=== PATIENT | female | born 1945 | race Caucasian/White ===

== ENCOUNTER 2017-02-02 22:07 | Emergency (ER) | payer MEDICARE, OTHER ==
[2017-02-02] MEDS ORDERED: IBUPROFEN 400 MG TABLET PO STA (22:24)
[2017-02-02] MEDS ORDERED: IBUPROFEN 400 MG TABLET PO ONE (22:24)
== END 2017-02-02 23:23 | disposition home or self-care (01) ==
DX: M25.561 Pain in right knee (principal); R03.0 Elevated blood-pressure reading, without diagnosis of hypertension; I25.2 Old myocardial infarction; E03.9 Hypothyroidism, unspecified; F17.200 Nicotine dependence, unspecified, uncomplicated
CPT/HCPCS: 73564; 99283; 99284; A9270

== ENCOUNTER 2017-08-20 13:34 | Emergency (ER) | payer MEDICARE, OTHER ==
[2017-08-20 14:32] LABS: BASOPHILS % (AUTO) 1.2 %; EOSINOPHILS # (AUTO) 0.1 10^3/uL (0.0-0.7); EOSINOPHILS % (AUTO) 1.6 %; HCT - HEMATOCRIT 34.6 % (37.0-47.0); HGB - HEMOGLOBIN 11.5 g/dL (12.0-16.0); LYMPHOCYTES # (AUTO) 1.3 10^3/uL (1.5-3.5); LYMPHOCYTES % (AUTO) 33.7 %; MEAN CORPUSCULAR HEMOGLOBIN 31.1 pg (27.0-31.0); MEAN CORPUSCULAR HGB CONC 33.1 g/dL (32.0-36.0); MEAN CORPUSCULAR VOLUME 93.9 fL (81.0-99.0); MONOCYTES # (AUTO) 0.4 10^3/uL (0.0-1.0); MONOCYTES % (AUTO) 10.6 %; NEUTROPHILS % (AUTO) 52.9 %; NUCLEATED RED BLOOD CELLS AUTO 0.1 /100WBC; RED BLOOD COUNT 3.69 10^6/uL (4.20-5.40); RED CELL DISTRIBUTION WIDTH 14.5 % (12.0-15.0); UNCORRECTED WHITE BLOOD COUNT 3.8 x10^3/uL; WHITE BLOOD COUNT 3.8 x10^3/uL (4.8-10.8)
--- NOTE | 2017-08-20 14:33 | ED Physician Documentation ---
PD HPI CHEST PAIN - Stated complaint Stated Complaint: WEAKNESS/TIRED - Chief complaint Chief Complaint: Cardiac - History obtained from History obtained from: Patient - History of Present Illness Timing - onset: Today (this morning), Last night (some fatigue started last night, with slight chest pressure. This was present this morning again about 9: 30. Still feels weak and tired.) Timing - onset during: Rest Timing - duration: Minutes Timing - details: Abrupt onset, Now resolved (the chest pressure is gone but feels fatigue.) Quality: Pressure, Tightness Location: Substernal Worsened by: No: Inspiration, Movement, Palpation Associated symptoms: General Weakness. No: Shortness of air, Diaphoresis, Nausea, Vomiting, Feeling faint / dizzy, Palpitations, Cough Similar symptoms before: Diagnosis ([place]) Recently seen: Not recently seen Review of Systems Constitutional: denies: Fever, Myalgias Nose: denies: Rhinorrhea / runny nose, Congestion Throat: denies: Sore throat Cardiac: reports: Chest pain / pressure (mild chest pressure this morning about 9:30, and some last night as well.). denies: Palpitations, Pedal edema, Calf pain Respiratory: denies: Dyspnea, Cough, Wheezing Musculoskeletal: denies: Extremity swelling Neurologic: reports: Generalized weakness. denies: Focal weakness, Numbness, Near syncope Psychiatric: denies: Insomnia Endocrine: denies: Weight loss, Easy bruising / bleeding PD PAST MEDICAL HISTORY - Past Medical History Cardiovascular: [place] Respiratory: None Neuro: None Endocrine/Autoimmune: HyPOthyroidism GI: None CONCESSION SUPERVISOR: None : None HEENT: None Psych: Depression, Anxiety Musculoskeletal: None Derm: Rosacea - Past Surgical History Past Surgical History: Yes Ortho: Other /CONCESSION SUPERVISOR: Tubal ligation HEENT: Tonsil/Adenoidectomy - Present Medications Home Medications: Ambulatory Orders Medication Instructions Recorded Confirmed Citalopram [CeleXA] 10 mg ORAL DAILY 11/03/14 08/06/15 LORazepam [Ativan] 0.5 mg ORAL DAILY PRN 11/03/14 08/06/15 Levothyroxine [Synthroid] 50 mcg PO DAILY 11/03/14 08/06/15 Nitroglycerin 0.4 mg PO DAILY PRN 08/06/15 08/06/15 Hydrocodone/Acetaminophen 1 - 2 each PO Q6H PRN #14 tablet 02/02/17 [Hydrocodon-Acetaminophen 5-325] Meloxicam [Mobic] 7.5 mg PO BID PRN #20 tablet 02/02/17 - Allergies Allergies/Adverse Reactions: Allergies Allergy/AdvReac Type Severity Reaction Status Date / Time erythromycin base Allergy Mild Unknown Verified 02/02/17 22:19 [From E-Mycin] epinephrine AdvReac Rash Verified 02/02/17 22:19 - Social History Does the pt smoke?: Yes Smoking Status: Current every day smoker Does the pt drink ETOH?: Yes Does the pt have substance abuse?: No - Immunizations Immunizations are current?: Yes - POLST Patient has POLST: No PD ED PE NORMAL - Vitals Vital signs reviewed: Yes - General General: Alert and oriented X 3, No acute distress, Well developed/nourished - HEENT HEENT: Moist mucous membranes, Pharynx benign - Neck Neck: Supple, no meningeal sign, No adenopathy - Cardiac Cardiac: RRR (bradycardic in 50s), No murmur, No rub - Respiratory Respiratory: Clear bilaterally - Abdomen Abdomen: Soft, Non tender - Female Female : Deferred - Rectal Rectal: Deferred - Back Back: No CVA TTP - Derm Derm: Normal color, Warm and dry - Extremities Extremities: No deformity, No tenderness to palpate, Normal ROM s pain, No edema , No calf tenderness / cord - Neuro Neuro: Alert and oriented X 3, No motor deficit, Normal speech - Psych Psych: Normal mood. No: Normal affect (slightly flat) Results - Vitals Vitals: Oxygen O2 Source Room air - EKG (time done) 13:52 Rate: Rate (enter#) (51) Rhythm: Sinus bradycardia Van: Normal Intervals: Normal IA QRS: Normal Ischemia: Normal ST segments. No: ST elevation c/w ischemia, ST depression, T wave inversion - Labs Labs: Laboratory Tests 08/20/17 08/20/17 08/20/17 14:23 14:23 14:23 WBC 3.8 L RBC 3.69 L Hgb 11.5 L Hct 34.6 L MCV 93.9 MCH 31.1 H MCHC 33.1 RDW 14.5 Plt Count 196 MPV 8.0 Neut # 2.0 Lymph # 1.3 L [place] # 0.4 Eos # 0.1 Baso # 0.0 Absolute Nucleated RBC 0.00 Nucleated RBC % 0.1 Sodium 137 Potassium 3.9 Chloride 103 Carbon Dioxide 27 Anion Gap 7.0 BUN 13 Creatinine 0.7 Estimated GFR (MDRD) 82 L Glucose 97 Calcium 9.1 Total Bilirubin 0.6 AST 25 ALT 16 Alkaline Phosphatase 102 Troponin I < 0.04 Total Protein 6.7 Albumin 3.8 Globulin 2.9 Albumin/Globulin Ratio 1.3 Lipase 45 - Rads (name of study) chest Radiology: Prelim report reviewed (no acute process) PD MEDICAL DECISION MAKING - ED course Complexity details: reviewed results, considered differential (she was concerned about weakness feeling being from [place], and with normal ECG and negative troponin about 6 hours after onset, I feel this can be excluded. Heart rate in 50s but she says it commonly slow. Not on rate limiting meds. Consider if slower heart rate leading to fatigue but is not affecting BP. ), d/w patient Departure - Departure Disposition: 01 Home, Self Care Clinical Impression: General weakness Clinical Impression: (Ruled Out): Myocardial infarction Condition: Stable Record reviewed to determine appropriate education?: Yes Instructions: ED Weakness [facility] Follow-Up: Connie Ochoa MD [Primary Care Provider] - Comments: Encourage frequent fluids. Continue usual medications. I do not know the cause of your weakness episode this morning. There is no signs of heart attack or electrolyte problems. He do have mild anemia but it is looks similar to where you have been. Recheck with your primary care, particularly if you have recurring episodes that come and go as a potentially could have you a heart monitor to make sure not having irregular heart rhythms periodically. Return to the ER if worse symptoms develop. Discharge Date/Time: 08/20/17 15:32
[2017-08-20 14:45] LABS: ALBUMIN/GLOBULIN RATIO 1.3 (1.0-2.2); BILIRUBIN,TOTAL 0.6 mg/dL (0.2-1.0); CALCIUM 9.1 mg/dL (8.5-10.3); CREATININE 0.7 mg/dL (0.4-1.0); POTASSIUM 3.9 mmol/L (3.5-5.0); TOTAL PROTEIN 6.7 g/dL (6.7-8.2)
--- NOTE | 2017-08-20 15:12 | XRAY Preliminary Report ---
Exam: XR Chest 2 View PA/LAT IMPRESSION: No acute intrathoracic plain film abnormality. [facility] SITE ID: [id number]
--- NOTE | 2017-08-20 15:14 | XRAY Report ---
EXAM: CHEST RADIOGRAPHY EXAM DATE: 08/20/2017 03:04 PM. CLINICAL HISTORY: Chest Pain. COMPARISON: None. TECHNIQUE: 2 views. FINDINGS: Lungs/Pleura: No focal opacities evident. No pleural effusion. No pneumothorax. Normal volumes. Mediastinum: Heart and mediastinal contours are unremarkable. Other: None. IMPRESSION: No acute intrathoracic plain film abnormality. [facility] Referring Provider Line: [phone] SITE ID: [id number]
[2017-08-20 15:33] VITALS: BP 155/67
== END 2017-08-20 15:32 | disposition home or self-care (01) ==
LOC: ED 13:34
DX: R53.1 Weakness (principal); I44.4 Left anterior fascicular block; F17.200 Nicotine dependence, unspecified, uncomplicated
CPT/HCPCS: 36415; 71020; 80053; 83690; 84484; 85025; 93005; 99283; 99284

== ENCOUNTER 2017-08-26 08:33 | Outpatient (CLI) | payer MEDICARE, OTHER | END 2017-08-26 08:34 | disposition EMS.NT | LOC: EMS 08:33 | PROVIDERS: ATTEND Surgery | DX: R09.89 Other specified symptoms and signs involving the circulatory and respiratory systems (principal) ==

== ENCOUNTER 2018-01-28 09:09 | Outpatient (CLI) | payer MEDICARE, OTHER ==
--- NOTE | 2018-01-28 09:58 | Ultrasound Report ---
SUBMANDIBULAR GLAND ULTRASOUND: 01/28/2018 COMPARISON: None. TECHNIQUE: Sonographic evaluation of the submandibular glands. FINDINGS: Right submandibular gland 3.8 x 3.2 x 1.4 cm. Left submandibular gland 3.6 x 2.8 x 1.2 cm. The right submandibular gland is somewhat more vascular than the left. No adenopathy is demonstrated. IMPRESSION: UNREMARKABLE EVALUATION OF THE SUBMANDIBULAR GLANDS. TD: 01/28/2018 09:57 JODY
== END 2018-01-28 09:10 | disposition home or self-care (01) ==
LOC: DI 09:09
PROVIDERS: ATTEND Registered Nurse
DX: K11.1 Hypertrophy of salivary gland (principal)
CPT/HCPCS: 76536

== ENCOUNTER 2018-02-27 10:25 | Emergency (ER) | payer MEDICARE, OTHER ==
[2018-02-27] MEDS ORDERED: MORPHINE 2 MG/ML SYRINGE IVP STA (12:22)
--- NOTE | 2018-02-27 12:26 | ED Physician Documentation ---
PD HPI BACK PAIN - Stated complaint Stated Complaint: BACK PX - Chief complaint Chief Complaint: Back Pain - History obtained from History obtained from: Patient - History of Present Illness Timing - onset: Other (4 days low back pain, initially left side now ride side. Worse with bending/twisting. No weak/numb/tingling or incontinence. Was constipated but had larg otherwise nl BM this AM.) Review of Systems Constitutional: denies: Fever, Chills Ears: denies: Loss of hearing, Ear pain Nose: denies: Rhinorrhea / runny nose, Congestion GI: reports: Abdominal Pain, Constipation. 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 : None HEENT: None Psych: Depression, Anxiety Musculoskeletal: None Derm: Rosacea - Past Surgical History Past Surgical History: Yes Ortho: Other /HOSPITAL SALES REPRESENTATIVE: Tubal ligation HEENT: Tonsil/Adenoidectomy - Present Medications Home Medications: Ambulatory Orders Medication Instructions Recorded Confirmed Citalopram [CeleXA] 10 mg ORAL DAILY 11/03/14 02/27/18 LORazepam [Ativan] 0.5 mg ORAL DAILY PRN 11/03/14 02/27/18 Levothyroxine [Synthroid] 50 mcg PO DAILY 11/03/14 02/27/18 Nitroglycerin 0.4 mg PO DAILY PRN 08/06/15 02/27/18 Hydrocodone/Acetaminophen 1 - 2 each PO Q6H PRN #14 tablet 02/02/17 02/27/18 [Hydrocodon-Acetaminophen 5-325] Meloxicam [Mobic] 7.5 mg PO BID PRN #20 tablet 02/02/17 02/27/18 Gabapentin [Neurontin] 100 mg PO TID #60 capsule 02/27/18 HYDROcod/ACETAM 5/325 [Blackstone 5/325] 1 - 2 ea PO Q6H PRN #15 tablet 02/27/18 - Allergies Allergies/Adverse Reactions: Allergies Allergy/AdvReac Type Severity Reaction Status Date / Time erythromycin base Allergy Mild Unknown Verified 02/02/17 22:19 [From E-Mycin] epinephrine AdvReac Rash Verified 02/02/17 22:19 - Social History Does the pt smoke?: Yes Smoking Status: Current every day smoker Does the pt drink ETOH?: No Does the pt have substance abuse?: No - Family History Family history: reports: Non contributory - Immunizations Immunizations are current?: Yes - POLST Patient has POLST: No PD ED PE NORMAL - Vitals Vital signs reviewed: Yes - General General: Alert and oriented X 3, No acute distress - Neck Neck: Supple, no meningeal sign, No bony TTP - Cardiac Cardiac: RRR, No murmur - Respiratory Respiratory: No respiratory distress, Clear bilaterally - Abdomen Abdomen: Normal bowel sounds, Soft, Other (She is quite TTP in the RLQ) - Back Back: Other (She is tender in the paralumbar muscles on the right side, but also has tenderness of the pelvic brim. The patient has equal and normal Achilles and patellar reflexes bilaterally. Normal sensation in all areas of the legs. Patient denies saddle anesthesia. Normal strength in flexion- extension at the ankles, knees, and flexion of the hips.) - Extremities Extremities: No edema, No calf tenderness / cord, Other (Neg SLR, no pain with hip rotation) - Neuro Neuro: Alert and oriented X 3, No motor deficit, No sensory deficit, Normal speech - Psych Psych: Normal mood, Normal affect Results - Vitals Vitals: Vital Signs - 24 hr 02/27/18 02/27/18 10:41 13:19 Temperature 36.3 C L Heart Rate 63 65 Respiratory 14 18 Rate Blood Pressure 101/86 H 160/69 H O2 Saturation 100 100 Oxygen O2 Source Room air - Labs Labs: Laboratory Tests 02/27/18 02/27/18 12:22 12:22 WBC 6.8 RBC 3.95 L Hgb 12.5 Hct 36.9 L MCV 93.5 MCH 31.7 H MCHC 33.9 RDW 14.3 Plt Count 212 MPV 8.0 Neut # 5.1 Lymph # 1.1 L [place] # 0.5 Eos # 0.0 Baso # 0.0 Absolute Nucleated RBC 0.00 Nucleated RBC % 0.0 Sodium 134 L Potassium 3.9 Chloride 98 L Carbon Dioxide 26 Anion Gap 10.0 BUN 12 Creatinine 0.7 Estimated GFR (MDRD) 82 L Glucose 93 Calcium 9.4 Total Bilirubin 1.0 AST 28 ALT 18 Alkaline Phosphatase 106 Total Protein 7.9 Albumin 4.6 Globulin 3.3 Albumin/Globulin Ratio 1.4 Lipase 26 - Rads (name of study) CT A/P and L spine Radiology: EMP read contemporaneously (Multilevel degenerative changes with stenosis in the back and bilateral foraminal narrowing, no intra-abdominal issues.) PD MEDICAL DECISION MAKING - ED course ED course: 72-year-old with woman with back pain which by history seems musculoskeletal without neurologic compromise, that said she does have some very mild right lower quadrant tenderness leading to a more expanded workup with labs and CT, the outcome of which was mild stenosis at L3-L4, moderate stenosis at L4-L5, and moderate bilateral L4-L5 bony foraminal compromise. Departure - Departure Disposition: 01 Home, Self Care Clinical Impression: Abdominal pain Back pain Qualifiers: Back pain location: low back pain Chronicity: acute Back pain laterality: bilateral Sciatica presence: without sciatica Qualified Code(s): M54.5 - Low back pain Record reviewed to determine appropriate education?: Yes Instructions: ED Low Back Pain Injury Prescriptions: Gabapentin [Neurontin] 100 mg PO TID #60 capsule HYDROcod/ACETAM 5/325 [Blackstone 5/325] 1 - 2 ea PO Q6H PRN #15 tablet PRN Reason: Pain Comments: Call your doctor to arrange a follow-up appointment, make the next available appointment. In the interim, return anytime if worse or if new symptoms develop. Your blood pressure was elevated today on check into the emergency department. This does not mean that you have hypertension, it is a common phenomenon to come to the emergency department and have elevated blood pressure. I recommend that you see your primary care physician within the week to have it rechecked when you are feeling better. Do not drink or drive while taking narcotic pain medication. Note that many narcotic pain relievers also contain Tylenol/acetaminophen. Please ensure that your total dose of acetaminophen from all sources does not exceed 3 g (3000 mg) per day. You may get constipated while on this medication. Take a stool softener such as Colace twice a day while you are on it. Also add an dhfu-kdx-[id number] laxative such as senna or MiraLAX on any day that you do not have a bowel movement. If you received a narcotic pain medication or sedative while in the emergency department, do not drive for the next 24 hours.
[2018-02-27 12:42] LABS: BASOPHILS % (AUTO) 0.5 %; EOSINOPHILS % (AUTO) 0.2 %; HGB - HEMOGLOBIN 12.5 g/dL (12.0-16.0); LYMPHOCYTES # (AUTO) 1.1 10^3/uL (1.5-3.5); LYMPHOCYTES % (AUTO) 16.5 %; MEAN CORPUSCULAR HEMOGLOBIN 31.7 pg (27.0-31.0); MEAN CORPUSCULAR HGB CONC 33.9 g/dL (32.0-36.0); MEAN CORPUSCULAR VOLUME 93.5 fL (81.0-99.0); MONOCYTES # (AUTO) 0.5 10^3/uL (0.0-1.0); MONOCYTES % (AUTO) 7.8 %; NEUTROPHILS # (AUTO) 5.1 10^3/uL (1.5-6.6); PLT - PLATELET COUNT 212 10^3/uL (130-450); RED BLOOD COUNT 3.95 10^6/uL (4.20-5.40); RED CELL DISTRIBUTION WIDTH 14.3 % (12.0-15.0); WHITE BLOOD COUNT 6.8 x10^3/uL (4.8-10.8)
[2018-02-27 12:54] LABS: ALBUMIN 4.6 g/dL (3.2-5.5); ALBUMIN/GLOBULIN RATIO 1.4 (1.0-2.2); CALCIUM 9.4 mg/dL (8.5-10.3); CREATININE 0.7 mg/dL (0.4-1.0); TOTAL PROTEIN 7.9 g/dL (6.7-8.2)
[2018-02-27] MEDS ORDERED: IOPAMIDOL-300 100 ML VIAL ONE (13:28)
--- NOTE | 2018-02-27 14:15 | CT Preliminary Report ---
Exam: CT LUMBAR SPINE W/O IMPRESSION: 1. No acute bony abnormality. 2. Mild central spinal canal stenosis L3-L4. 3. Moderate central spinal canal stenosis L4-L5. Moderate bilateral L4-L5 bony neural foramina compro mise. [facility] SITE ID: [id number]
--- NOTE | 2018-02-27 14:18 | CT Report ---
EXAM: CT LUMBAR SPINE WITHOUT CONTRAST EXAM DATE: 02/27/2018 01:51 PM. CLINICAL HISTORY: Back pain, right leg weakness. COMPARISONS: None. TECHNIQUE: Thin-section axial images were acquired of the lumbar spine from mid body T12 to mid body S4 without contrast. Post-processing: Coronal and sagittal reformats. Other: None. In accordance with CT protocol optimization, one or more of the following dose reduction techniques w ere utilized for this exam: automated exposure control, adjustment of mA and/or KV based on patient s ize, or use of iterative reconstructive technique. FINDINGS: Alignment: No scoliosis. Bones: Five snz-cfo-korijqv lumbar vertebral bodies are present. Old slight wedging L1. Trabecular and cortical patterns are intact. Disk Levels/Facets: T12-L1: Unremarkable. L1-L2: Unremarkable. L2-L3: Unremarkable. L3-L4: Mild narrowing. Mild symmetrical disk bulge. Moderate right and mild left L3-L4 facet degenera tive changes. Mild central spinal canal stenosis. L4-L5: Mild narrowing. Mild symmetrical disk bulge. 3 mm degenerative anterior subluxation L4 on L5. Moderate right and mild left L4-L5 facet degenerative changes. Moderate central spinal canal stenosis . Moderate bilateral bony neural foraminal compromise. L5-S1: Normal caliber. Moderate to marked right and mild left L5-S1 facet degenerative changes. Musculature: Normal. No fatty atrophy. Other: The visualized retroperitoneum is unremarkable. IMPRESSION: 1. No acute bony abnormality. 2. Mild central spinal canal stenosis L3-L4. 3. Moderate central spinal canal stenosis L4-L5. Moderate bilateral L4-L5 bony neural foraminal compr omise. [facility] Referring Provider Line: [phone] SITE ID: [id number]
--- NOTE | 2018-02-27 14:57 | CT Report ---
EXAM: CT ABDOMEN AND PELVIS EXAM DATE: 02/27/2018 02:14 PM. CLINICAL HISTORY: Abd pain. COMPARISONS: None. TECHNIQUE: Routine helical CT imaging was performed through the abdomen and pelvis. IV contrast: None . Enteric contrast: No. Reconstructions: Coronal and sagittal. In accordance with CT protocol optimization, one or more of the following dose reduction techniques w ere utilized for this exam: automated exposure control, adjustment of mA and/or KV based on patient s ize, or use of iterative reconstructive technique. FINDINGS: Lack of IV contrast degrades evaluation of abdominal solid organs. Lung Bases: Unremarkable. Liver: Normal. No masses. Gallbladder/Bile Ducts: Unremarkable. Spleen: Normal. Pancreas: Normal. Adrenal Glands: Normal. Kidneys: Normal. No masses or hydronephrosis. No convincing renal or ureteral calculi. Peritoneal Cavity/Bowel: Normal. No free fluid, free air or adenopathy. No masses or acute inflammato ry process. The appendix is well visualized and normal. Pelvic Organs: Normal. The bladder and visualized pelvic organs are within normal limits. Vasculature: No aneurysms or other significant abnormality. Bones: No significant abnormality. Other: None. IMPRESSION: 1. No convincing acute abdominopelvic findings. 2. Other findings as noted above. Please see separately dictated report for CT of the lumbar spine obtained concurrently for associated findings. [facility] Referring Provider Line: [phone] SITE ID: [id number]
--- NOTE | 2018-02-27 14:57 | CT Preliminary Report ---
Exam: CT ABDOMEN/PELVIS W/O IMPRESSION: 1. No convincing acute abdominopelvic findings. 2. Other findings as noted above. Please see separately dictated report for CT of the lumbar spine obtained concurrently for associated findings. [facility] SITE ID: [id number]
[2018-02-27 15:31] VITALS: BP 160/68
== END 2018-02-27 15:40 | disposition home or self-care (01) ==
LOC: ED 10:25
DX: R10.9 Unspecified abdominal pain (principal); M54.5 Low back pain; R03.0 Elevated blood-pressure reading, without diagnosis of hypertension; I25.2 Old myocardial infarction; E03.9 Hypothyroidism, unspecified; F17.200 Nicotine dependence, unspecified, uncomplicated
CPT/HCPCS: 36415; 72131; 74176; 80053; 83690; 85025; 96374; 99283; 99284; J2270

== ENCOUNTER 2018-05-17 12:17 | Outpatient (CLI) | payer MEDICARE, OTHER ==
--- NOTE | 2018-05-17 12:38 | XRAY Report ---
Procedure Date: 05/17/2018 Accession Number: [id number] / [id number] Procedure: XR - Shoulder 3 View RT CPT Code: FULL RESULT: EXAM: Shoulder 3 View RT DATE: 05/17/2018 12:35 PM CLINICAL HISTORY: RT SHOULDER PAIN COMPARISON: None. TECHNIQUE: 3 views. FINDINGS: Bones: Normal. No fracture or bone lesion. Joints: Degenerative changes of the glenohumeral and acromioclavicular joints. Soft tissues: The visualized hemithorax is unremarkable. No soft tissue swelling. IMPRESSION: Osteoarthritis. No evidence of fracture. [facility]
== END 2018-05-17 12:18 | disposition home or self-care (01) ==
LOC: DI 12:17
PROVIDERS: ATTEND Internal Medicine
DX: M19.011 Primary osteoarthritis, right shoulder (principal)

== ENCOUNTER 2019-09-02 15:42 | Outpatient (CLI) | payer MEDICARE, OTHER ==
--- NOTE | 2019-09-03 09:16 | Ultrasound Report ---
Reason: HEADACHE, ABN FOOT PULSE Procedure Date: 09/02/2019 Accession Number: [id number] / [id number] Procedure: US - Duplex Ext Veins Bilateral CPT Code: FULL RESULT: EXAM: BILATERAL LOWER EXTREMITY VENOUS ULTRASOUND EXAM DATE: 09/02/2019 05:01 PM. CLINICAL HISTORY: HEADACHE, ABN FOOT PULSE. COMPARISON: None. TECHNIQUE: Real-time sonographic vascular imaging was performed by the stope miner through the lower extremities utilizing both color-flow and Doppler spectral analysis. Multiple customer engagement representative static images were saved for review. FINDINGS: Right: Common Femoral Vein (CFV): Normal. CFV-GSV Junction: Normal. Profunda Femoral Vein (PFV): Normal. Femoral Vein (FV) Prox: Normal. Femoral Vein (FV) Mid: Normal. Femoral Vein (FV) Dist: Normal. Popliteal Vein: Normal. Posterior Tibial Veins: Normal. Peroneal Veins: Normal. Left: Common Femoral Vein (CFV): Normal. CFV-GSV Junction: Normal. Profunda Femoral Vein (PFV): Normal. Femoral Vein (FV) Prox: Normal. Femoral Vein (FV) Mid: Normal. Femoral Vein (FV) Dist: Normal. Popliteal Vein: Normal. Posterior Tibial Veins: Normal. Peroneal Veins: Normal. Other: None. IMPRESSION: No evidence for deep venous thrombosis in the bilateral lower extremities. [facility]
--- NOTE | 2019-09-03 09:30 | CT Report ---
Reason: HEADACHE, ABN FOOT PULSE Procedure Date: 09/02/2019 Accession Number: [id number] / [id number] Procedure: CT - HEAD WO CPT Code: FULL RESULT: EXAM: CT HEAD EXAM DATE: 09/02/2019 06:03 PM. CLINICAL HISTORY: HEADACHE, ABN FOOT PULSE. COMPARISON: None. TECHNIQUE: Multiaxial CT images were obtained from the foramen magnum to the vertex. Reformats: Sagittal and coronal. IV contrast: None. In accordance with CT protocol optimization, one or more of the following dose reduction techniques were utilized for this exam: automated exposure control, adjustment of mA and/or KV based on patient size, or use of iterative reconstructive technique. FINDINGS: Parenchyma: Subcortical and periventricular white matter changes consistent with small vessel ischemic disease in the appropriate clinical setting. No intraparenchymal hemorrhage. No evidence of mass, midline shift, or CT findings of infarction. Cuadra-white differentiation is distinct. Extraaxial Spaces: Normal for age. No subdural or epidural collections identified. Ventricles: Normal in size and position. Sinuses and Orbits: Imaged paranasal sinuses, orbits, and mastoids show no significant abnormality. Bones: No evidence of fracture or calvarial defect. Other: None. IMPRESSION: 1. No acute intracranial abnormality. 2. Small vessel ischemic disease in the appropriate clinical setting. [facility]
--- NOTE | 2019-09-08 12:33 | Ultrasound Report ---
Reason: HEADACHE, ABN FOOT PULSE Procedure Date: 09/02/2019 Accession Number: [id number] / [id number] Procedure: US - Duplex Lwr Ext Arterial Bilat CPT Code: FULL RESULT: EXAM: Bilateral Lower Extremity Arterial Doppler Ultrasound EXAM DATE: 09/02/2019 06:00 PM. CLINICAL HISTORY: Abnormal foot pulse. History of coronary artery disease. COMPARISON: None. TECHNIQUE: Real-time sonographic vascular imaging was performed by the creping machine operator helper, utilizing color-flow, Doppler flow, and spectral analysis. Multiple construction representative static images were saved for review. FINDINGS: Right Leg: TEMPORARY STAFF ACCOUNTANT: PSV 125 cm/sec. Biphasic waveform. PSFA: PSV 70 cm/sec. Biphasic waveform. MSFA: PSV 91 cm/sec. Biphasic waveform. DSFA: PSV 80 cm/sec. Biphasic waveform. PFA: PSV 56 cm/sec. Monophasic waveform. POP: PSV 50 cm/sec. Biphasic waveform. CHRISTINE: PSV 84 cm/sec. Biphasic waveform. ACCOUNT ENGINEER: PSV 78 cm/sec. Biphasic waveform. PER: PSV 43 cm/sec. Monophasic/biphasic waveform. DPA: PSV 65 cm/sec. Monophasic/biphasic waveform. Left Leg: TEMPORARY STAFF ACCOUNTANT: PSV 114 cm/sec. Biphasic waveform. PSFA: PSV 72 cm/sec. Biphasic waveform. MSFA: PSV 79 cm/sec. Biphasic waveform. DSFA: PSV 83 cm/sec. Biphasic waveform. PFA: PSV 67 cm/sec. Biphasic waveform. POP: PSV 69 cm/sec. Biphasic waveform. CHRISTINE: PSV 45 cm/sec. Biphasic waveform. ACCOUNT ENGINEER: PSV 49 cm/sec. Biphasic waveform. PER: PSV 28 cm/sec. Monophasic/biphasic waveform. DPA: PSV 73 cm/sec. Biphasic waveform. Other: Mild calcified plaquing bilaterally. IMPRESSION: No flow limiting stenosis in either lower extremity arterial system. [facility]
== END 2019-09-02 15:43 | disposition home or self-care (01) ==
LOC: DI 15:42
PROVIDERS: ATTEND Physician Assistant
DX: R51 Headache (principal); R09.89 Other specified symptoms and signs involving the circulatory and respiratory systems
CPT/HCPCS: 70450; 93925; 93970

== ENCOUNTER 2019-11-06 12:07 | Outpatient (CLI) | payer MEDICARE, OTHER ==
--- NOTE | 2019-11-06 18:45 | XRAY Report ---
Reason: LOW BACK PAIN Procedure Date: 11/06/2019 Accession Number: [id number] / [id number] Procedure: XR - Lumbar Spine 2 View CPT Code: Final Report FULL RESULT: EXAM: LUMBOSACRAL SPINE RADIOGRAPHY EXAM DATE: 11/06/2019 12:38 PM. CLINICAL HISTORY: Low back for 2 weeks after a cough. COMPARISONS: ABDOMEN/PELVIS W/O 02/27/2018 2:01 PM. TECHNIQUE: 3 views. FINDINGS: Alignment: Normal. No spondylolisthesis or scoliosis. Bones: Five orf-sbd-zffxqrp lumbar vertebral bodies are present. No fractures or bone lesions. Disks: Mild disk space narrowing at L3-L4 and L4-L5. Sacroiliac Joints: Unremarkable. Soft Tissues: Normal. The visualized bowel gas pattern is normal. IMPRESSION: Mild degenerative disk disease at L3-L4 and L4-L5. [facility]
== END 2019-11-06 12:08 | disposition home or self-care (01) ==
LOC: DI 12:07
PROVIDERS: ATTEND Registered Nurse
DX: M51.36 Other intervertebral disc degeneration, lumbar region (principal)
CPT/HCPCS: 72100

== ENCOUNTER 2019-12-15 08:00 | Outpatient (CLI) | payer MEDICARE, OTHER | END 2019-12-15 23:59 | disposition home or self-care (01) | LOC: LAB.R 08:00 | PROVIDERS: ATTEND Registered Nurse | DX: I10 Essential (primary) hypertension (principal) | CPT/HCPCS: 81599; 82384; 82570; 83835 ==

== ENCOUNTER 2019-12-15 10:44 | Outpatient (CLI) | payer MEDICARE, OTHER ==
[2019-12-15 11:44] LABS: BASOPHILS % (AUTO) 0.9 %; EOSINOPHILS # (AUTO) 0.1 10^3/uL (0.0-0.7); EOSINOPHILS % (AUTO) 1.5 %; LYMPHOCYTES # (AUTO) 1.7 10^3/uL (1.5-3.5); MEAN CORPUSCULAR HEMOGLOBIN 30.5 pg (27.0-31.0); MEAN CORPUSCULAR HGB CONC 31.6 g/dL (32.0-36.0); MEAN CORPUSCULAR VOLUME 96.4 fL (81.0-99.0); MEAN PLATELET VOLUME 10.3 fL (7.9-10.8); MONOCYTES # (AUTO) 0.5 10^3/uL (0.0-1.0); MONOCYTES % (AUTO) 11.2 %; NEUTROPHILS # (AUTO) 2.2 10^3/uL (1.5-6.6); PLT - PLATELET COUNT 211 10^3/uL (130-450); RED BLOOD COUNT 3.61 10^6/uL (4.20-5.40); RED CELL DISTRIBUTION WIDTH 14.2 % (12.0-15.0); WHITE BLOOD COUNT 4.5 x10^3/uL (4.8-10.8)
[2019-12-15 12:03] LABS: ALBUMIN 4.1 g/dL (3.2-5.5); ALBUMIN/GLOBULIN RATIO 1.3 (1.0-2.2); BILIRUBIN,TOTAL 0.9 mg/dL (0.2-1.0); CREATININE 0.7 mg/dL (0.4-1.0); TOTAL PROTEIN 7.2 g/dL (6.7-8.2)
[2019-12-15 12:28] LABS: THYROID STIMULATING HORMONE 2.54 uIU/mL (0.34-5.60)
[2019-12-15 12:32] LABS: FREE T4 (FREE THYROXINE) 0.87 ng/dL (0.58-1.64)
== END 2019-12-15 10:45 | disposition home or self-care (01) ==
LOC: LAB 10:44
PROVIDERS: ATTEND Registered Nurse
DX: E03.9 Hypothyroidism, unspecified (principal); I10 Essential (primary) hypertension
CPT/HCPCS: 36415; 80053; 81599; 82384; 82570; 83835; 84439; 84443; 85025

== ENCOUNTER 2019-12-17 16:15 | Outpatient (CLI) | payer MEDICARE, OTHER | END 2019-12-17 16:16 | disposition critical access hospital (66) | LOC: EMS 16:15 | PROVIDERS: ATTEND Surgery | DX: I10 Essential (primary) hypertension (principal); R42 Dizziness and giddiness; R51 Headache; R11.2 Nausea with vomiting, unspecified | CPT/HCPCS: A0425; A0429 ==

== ENCOUNTER 2019-12-17 16:39 | Emergency (ER) | payer MEDICARE, OTHER ==
[2019-12-17 17:00] LABS: BILIRUBIN,URINE NEGATIVE (NEGATIVE); GLUCOSE, URINE (UA) NEGATIVE (NEGATIVE); KETONES,URINE (UA) NEGATIVE (NEGATIVE); LEUKOCYTE ESTERASE, URINE NEGATIVE (NEGATIVE); NITRITE,URINE NEGATIVE (NEGATIVE); OCCULT BLOOD,URINE NEGATIVE (NEGATIVE); PROTEIN,URINE NEGATIVE (NEGATIVE); UROBILINOGEN,URINE 0.2 (NORMAL) E.U./dL (NORMAL)
[2019-12-17 17:01] LABS: CLARITY,URINE CLEAR (CLEAR)
[2019-12-17 17:07] LABS: BASOPHILS % (AUTO) 0.6 %; EOSINOPHILS # (AUTO) 0.1 10^3/uL (0.0-0.7); EOSINOPHILS % (AUTO) 1.3 %; HGB - HEMOGLOBIN 11.1 g/dL (12.0-16.0); LYMPHOCYTES # (AUTO) 1.8 10^3/uL (1.5-3.5); LYMPHOCYTES % (AUTO) 38.1 %; MEAN CORPUSCULAR HEMOGLOBIN 31.4 pg (27.0-31.0); MEAN CORPUSCULAR HGB CONC 33.2 g/dL (32.0-36.0); MEAN CORPUSCULAR VOLUME 94.4 fL (81.0-99.0); MEAN PLATELET VOLUME 9.8 fL (7.9-10.8); MONOCYTES # (AUTO) 0.6 10^3/uL (0.0-1.0); MONOCYTES % (AUTO) 11.7 %; NEUTROPHILS # (AUTO) 2.3 10^3/uL (1.5-6.6); NEUTROPHILS % (AUTO) 48.1 %; PLT - PLATELET COUNT 210 10^3/uL (130-450); RED BLOOD COUNT 3.54 10^6/uL (4.20-5.40); RED CELL DISTRIBUTION WIDTH 13.6 % (12.0-15.0); WHITE BLOOD COUNT 4.7 x10^3/uL (4.8-10.8)
[2019-12-17 17:20] LABS: ALBUMIN 4.1 g/dL (3.2-5.5); ALBUMIN/GLOBULIN RATIO 1.4 (1.0-2.2); BILIRUBIN,TOTAL 0.8 mg/dL (0.2-1.0); CALCIUM 9.1 mg/dL (8.5-10.3); CREATININE 0.7 mg/dL (0.4-1.0)
[2019-12-17] MEDS ORDERED: SODIUM CHLORIDE 0.9% 1,000 ML IV ONE (17:24)
--- NOTE | 2019-12-17 17:25 | XRAY Report ---
Reason: Chest pain Procedure Date: 12/17/2019 Accession Number: [id number] / [id number] Procedure: XR - Chest 1 View X-Ray CPT Code: 26492 Final Report FULL RESULT: EXAM: CHEST RADIOGRAPHY EXAM DATE: 12/17/2019 05:10 PM. CLINICAL HISTORY: Chest pain. COMPARISON: CHEST 2 VIEW PA/LAT 08/20/2017 2:41 PM. TECHNIQUE: 1 view. FINDINGS: Lungs/Pleura: No focal opacities evident. No pleural effusion. No pneumothorax. Mediastinum: Within exam limitations, the cardiomediastinal contour is normal. Other: None. IMPRESSION: Normal single view chest. [facility]
--- NOTE | 2019-12-17 17:27 | ED Physician Documentation ---
History of Present Illness - Stated complaint Stated Complaint: HIGH BP - Chief complaint Chief Complaint: Cardiac - History obtained from History obtained from: Patient, EMS - History of Present Illness Timing: Today Pain level max: 0 Pain level now: 0 - Additonal information Additional information: 74-year-old female presents to the emergency department stating that she had nausea involved states that that is normally a symptom of her coronary vasospasms. She states that she has had angiograms in the past and her arteries were "clean as a whistle". No history of cardiac stents, no bypasses. She has a longstanding history of hypertension. Started on hydrochlorothiazide recently. She saw her PCP today who was concerned about the nausea and coronary vasospasms, so she was sent here. Patient has no dyspnea. No chest pain. No EKG changes. Nothing makes it better or worse. Currently feels normal Review of Systems Ten Systems: 10 systems reviewed and negative Constitutional: denies: Fever, Chills Nose: denies: Rhinorrhea / runny nose, Congestion Throat: denies: Sore throat Cardiac: denies: Palpitations Respiratory: denies: Dyspnea, Cough GI: reports: Nausea, Vomiting, Diarrhea (felt like she was going to have diarrhea this am, but didn't). denies: Abdominal Pain : denies: Dysuria, Frequency, Hesitancy Skin: denies: Rash Musculoskeletal: denies: Neck pain, Back pain Neurologic: denies: Headache PD PAST MEDICAL HISTORY - Past Medical History Past Medical History: Yes Cardiovascular: [place], Other (coronary vasospasm) Respiratory: None Endocrine/Autoimmune: HyPOthyroidism GI: None MEDICAL ADMINISTRATIVE SPECIALIST: None : None HEENT: None Psych: Depression, Anxiety Musculoskeletal: None Derm: Rosacea - Past Surgical History Past Surgical History: Yes Ortho: Other /MEDICAL ADMINISTRATIVE SPECIALIST: Tubal ligation HEENT: Tonsil/Adenoidectomy - Present Medications Home Medications: Ambulatory Orders Medication Instructions Recorded Confirmed Citalopram [CeleXA] 10 mg ORAL DAILY 11/03/14 02/27/18 LORazepam [Ativan] 0.5 mg ORAL DAILY PRN 11/03/14 02/27/18 Levothyroxine [Synthroid] 50 mcg PO DAILY 11/03/14 02/27/18 Nitroglycerin 0.4 mg PO DAILY PRN 08/06/15 02/27/18 Hydrocodone/Acetaminophen 1 - 2 each PO Q6H PRN #14 tablet 02/02/17 02/27/18 [Hydrocodon-Acetaminophen 5-325] Meloxicam [Mobic] 7.5 mg PO BID PRN #20 tablet 02/02/17 02/27/18 Gabapentin [Neurontin] 100 mg PO TID #60 capsule 02/27/18 HYDROcod/ACETAM 5/325 [[place] 5/325] 1 - 2 ea PO Q6H PRN #15 tablet 02/27/18 - Allergies Allergies/Adverse Reactions: Allergies Allergy/AdvReac Type Severity Reaction Status Date / Time erythromycin base Allergy Mild Unknown Verified 12/17/19 16:52 [From E-Mycin] aspirin AdvReac Unknown Verified 12/17/19 16:53 epinephrine AdvReac Rash Verified 12/17/19 16:52 - Social History Does the pt smoke?: Yes Smoking Status: Current every day smoker Does the pt drink ETOH?: No Does the pt have substance abuse?: No - Immunizations Immunizations are current?: Yes - POLST Patient has POLST: No PD ED PE NORMAL - Vitals Vital signs reviewed: Yes - General General: Alert and oriented X 3, No acute distress - HEENT HEENT: Moist mucous membranes - Neck Neck: Supple, no meningeal sign - Cardiac Cardiac: RRR - Respiratory Respiratory: No respiratory distress, Clear bilaterally - Abdomen Abdomen: Soft, Non tender, Non distended - Derm Derm: Warm and dry - Extremities Extremities: No edema, No calf tenderness / cord - Neuro Neuro: Alert and oriented X 3 - Psych Psych: Normal mood, Normal affect Results - Vitals Vitals: Vital Signs - 24 hr 12/17/19 12/17/19 12/17/19 16:46 18:00 18:30 Temperature 36.2 C L Heart Rate 53 L 71 65 Respiratory 16 18 16 Rate Blood Pressure 163/90 H 183/77 H 177/78 H O2 Saturation 100 97 Oxygen O2 Source Room air - EKG (time done) 1707 Rate: Rate (enter#) (55) Rhythm: NSR [place]: Normal Intervals: Normal MD QRS: Normal, LVH Ischemia: Normal ST segments - Labs Labs: Laboratory Tests 12/17/19 12/17/19 12/17/19 16:49 17:01 17:01 WBC 4.7 L RBC 3.54 L Hgb 11.1 L Hct 33.4 L MCV 94.4 MCH 31.4 H MCHC 33.2 RDW 13.6 Plt Count 210 MPV 9.8 Neut # (Auto) 2.3 Lymph # (Auto) 1.8 [place] # (Auto) 0.6 Eos # (Auto) 0.1 Baso # (Auto) 0.0 Absolute Nucleated RBC 0.00 Nucleated RBC % 0.0 Sodium 129 L Potassium 3.7 Chloride 93 L Carbon Dioxide 26 Anion Gap 10.0 BUN 12 Creatinine 0.7 Estimated GFR (MDRD) 82 L Glucose 104 H Calcium 9.1 Total Bilirubin 0.8 AST 27 ALT 17 Alkaline Phosphatase 94 Troponin I High Sens Total Protein 7.0 Albumin 4.1 Globulin 2.9 Albumin/Globulin Ratio 1.4 Lipase 36 Urine Color YELLOW Urine Clarity CLEAR Urine pH 7.0 Ur Specific [place] <=1.005 Urine Protein NEGATIVE Urine Glucose (UA) NEGATIVE Urine Ketones NEGATIVE Urine Occult Blood NEGATIVE Urine Nitrite NEGATIVE Urine Bilirubin NEGATIVE Urine Urobilinogen 0.2 (NORMAL) Ur Leukocyte Esterase NEGATIVE Ur Microscopic Review NOT INDICATED Urine Culture Comments NOT INDICATED 12/17/19 17:01 WBC RBC Hgb Hct MCV MCH MCHC RDW Plt Count MPV Neut # (Auto) Lymph # (Auto) [place] # (Auto) Eos # (Auto) Baso # (Auto) Absolute Nucleated RBC Nucleated RBC % Sodium Potassium Chloride Carbon Dioxide Anion Gap BUN Creatinine Estimated GFR (MDRD) Glucose Calcium Total Bilirubin AST ALT Alkaline Phosphatase Troponin I High Sens 5.8 Total Protein Albumin Globulin Albumin/Globulin Ratio Lipase Urine Color Urine Clarity Urine pH Ur Specific [place] Urine Protein Urine Glucose (UA) Urine Ketones Urine Occult Blood Urine Nitrite Urine Bilirubin Urine Urobilinogen Ur Leukocyte Esterase Ur Microscopic Review Urine Culture Comments - Rads (name of study) cxr Radiology: Prelim report reviewed, EMP read contemporaneously, See rad report (Normal single view chest. ) PD MEDICAL DECISION MAKING - ED course Complexity details: reviewed results, re-evaluated patient, considered differential, d/w patient ED course: 74-year-old female presents to the emergency department with vomiting earlier today. This resolved prior to arrival in the emergency department. She has chronic hypertension. She has chronic hyponatremia, was given IV fluids here. Negative troponin. Normal EKG. No history of acute coronary syndrome. Does have a history of coronary vasospasm. We will have her follow-up with her doctor for further care. Patient counseled regarding signs and symptoms for which I believe and urgent re-evaluation would be necessary. Patient with good understanding of and agreement to plan and is comfortable going home at this time This document was made in part using voice recognition software. While efforts are made to proofread this document, sound alike and grammatical errors may occur. Departure - Departure Disposition: 01 Home, Self Care Clinical Impression: General weakness, Hyponatremia, Dehydration Vomiting Qualifiers: Vomiting type: unspecified Vomiting Intractability: unspecified Nausea presence: unspecified Qualified Code(s): R11.10 - Vomiting, unspecified Condition: Good Instructions: ED Dehydration Follow-Up: Kiya Cortez ARNP [Primary Care Provider] - Within 1 week Comments: Return if you worsen. Follow-up with your doctor for further care. Discharge Date/Time: 12/17/19 19:21
[2019-12-17 19:19] VITALS: BP 177/78
== END 2019-12-17 19:21 | disposition home or self-care (01) ==
LOC: EDUNIT# → ED 16:39
DX: E87.1 Hypo-osmolality and hyponatremia (principal); E86.0 Dehydration; R53.1 Weakness; R11.2 Nausea with vomiting, unspecified; I10 Essential (primary) hypertension; I25.2 Old myocardial infarction; F17.200 Nicotine dependence, unspecified, uncomplicated
CPT/HCPCS: 36415; 71045; 80053; 81001; 81003; 83690; 84484; 85025; 87086; 93005; 96360; 99284

== ENCOUNTER 2020-12-14 03:25 | Emergency (ER) | payer MEDICARE, OTHER ==
[2020-12-14 04:07] LABS: BASOPHILS # (AUTO) 0.1 10^3/uL (0.0-0.1); BASOPHILS % (AUTO) 0.7 %; EOSINOPHILS # (AUTO) 0.1 10^3/uL (0.0-0.7); EOSINOPHILS % (AUTO) 1.9 %; LYMPHOCYTES # (AUTO) 1.1 10^3/uL (1.5-3.5); LYMPHOCYTES % (AUTO) 15.7 %; MEAN CORPUSCULAR HEMOGLOBIN 31.9 pg (27.0-31.0); MEAN CORPUSCULAR HGB CONC 33.2 g/dL (32.0-36.0); MEAN CORPUSCULAR VOLUME 95.9 fL (81.0-99.0); MEAN PLATELET VOLUME 9.7 fL (7.9-10.8); MONOCYTES # (AUTO) 0.8 10^3/uL (0.0-1.0); MONOCYTES % (AUTO) 11.9 %; NEUTROPHILS # (AUTO) 4.7 10^3/uL (1.5-6.6); NEUTROPHILS % (AUTO) 69.7 %; PLT - PLATELET COUNT 188 10^3/uL (130-450); RED BLOOD COUNT 3.45 10^6/uL (4.20-5.40); RED CELL DISTRIBUTION WIDTH 14.3 % (12.0-15.0); WHITE BLOOD COUNT 6.8 x10^3/uL (4.8-10.8)
[2020-12-14 04:21] LABS: ALBUMIN 4.1 g/dL (3.2-5.5); ALBUMIN/GLOBULIN RATIO 1.3 (1.0-2.2); BILIRUBIN,TOTAL 0.8 mg/dL (0.2-1.0); CALCIUM 9.2 mg/dL (8.5-10.3); TOTAL PROTEIN 7.2 g/dL (6.7-8.2)
[2020-12-14] MEDS ORDERED: LACTATED RINGERS 1,000 ML IV STA (04:40)
[2020-12-14] MEDS ORDERED: IOVERSOL 320 100 ML VIAL IVP ONE ×2 (04:57→05:37)
--- NOTE | 2020-12-14 06:24 | ED Physician Documentation ---
PD HPI ABD PAIN - Stated complaint Stated Complaint: RT ADB PX - Chief complaint Chief Complaint: Abd Pain - History obtained from History obtained from: Patient - Additional information Additional information: 75yF with pmh R inguinal hernia s/p repair p/w several months of intermittent RLQ pain, worsening acutely today when she was lifting a heavy object. sudden onset, severe, constant, tapering down, worse with movement, radiating from RLQ to groin, worse with cough. denies fever, n/v/d back pain or urinary sx. Review of Systems Ten Systems: 10 systems reviewed and negative Constitutional: denies: Fever, Chills GI: reports: Abdominal Pain, Constipation. 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: None : None HEENT: None Psych: Depression, Anxiety Musculoskeletal: None Derm: Rosacea - Past Surgical History Past Surgical History: Yes Ortho: Other /BRATTICE BUILDER: Tubal ligation HEENT: Tonsil/Adenoidectomy - Present Medications Home Medications: Ambulatory Orders Medication Instructions Recorded Confirmed Citalopram [CeleXA] 10 mg ORAL DAILY 11/03/14 02/27/18 LORazepam [Ativan] 0.5 mg ORAL DAILY PRN 11/03/14 02/27/18 Levothyroxine [Synthroid] 50 mcg PO DAILY 11/03/14 02/27/18 Nitroglycerin 0.4 mg PO DAILY PRN 08/06/15 02/27/18 Hydrocodone/Acetaminophen 1 - 2 each PO Q6H PRN #14 tablet 02/02/17 02/27/18 [Hydrocodon-Acetaminophen 5-325] Meloxicam [Mobic] 7.5 mg PO BID PRN #20 tablet 02/02/17 02/27/18 Gabapentin [Neurontin] 100 mg PO TID #60 capsule 02/27/18 HYDROcod/ACETAM 5/325 [[place] 5/325] 1 - 2 ea PO Q6H PRN #15 tablet 02/27/18 - Allergies Allergies/Adverse Reactions: Allergies Allergy/AdvReac Type Severity Reaction Status Date / Time erythromycin base Allergy Mild Unknown Verified 12/14/20 03:35 [From E-Mycin] aspirin AdvReac Unknown Verified 12/14/20 03:35 epinephrine AdvReac Rash Verified 12/14/20 03:35 - Social History Does the pt smoke?: Yes Smoking Status: Current every day smoker Does the pt drink ETOH?: No Does the pt have substance abuse?: No - Immunizations Immunizations are current?: Yes - POLST Patient has POLST: No PD ED PE NORMAL - Vitals Vital signs reviewed: Yes - General General: Alert and oriented X 3 - HEENT HEENT: Atraumatic, PERRL, EOMI - Neck Neck: Supple, no meningeal sign - Cardiac Cardiac: RRR - Respiratory Respiratory: No respiratory distress, Clear bilaterally - Abdomen Abdomen: Other (ttp in RLQ. palpable inguinal wall defect) - Back Back: No CVA TTP - Derm Derm: Normal color - Extremities Extremities: No deformity - Neuro Neuro: Alert and oriented X 3 - Psych Psych: Normal mood, Normal affect Results - Vitals Vitals: Vital Signs - 24 hr 12/14/20 03:28 Temperature 36.2 C L Heart Rate 72 Respiratory 18 Rate Blood Pressure 153/75 H O2 Saturation 100 Oxygen O2 Source Room air - Labs Labs: Laboratory Tests 12/14/20 12/14/20 12/14/20 04:00 04:00 04:00 WBC 6.8 RBC 3.45 L Hgb 11.0 L Hct 33.1 L MCV 95.9 MCH 31.9 H MCHC 33.2 RDW 14.3 Plt Count 188 MPV 9.7 Neut # (Auto) 4.7 Lymph # (Auto) 1.1 L [place] # (Auto) 0.8 Eos # (Auto) 0.1 Baso # (Auto) 0.1 Absolute Nucleated RBC 0.00 Nucleated RBC % 0.0 Sodium 133 L Potassium 3.9 Chloride 99 L Carbon Dioxide 24 Anion Gap 10.0 BUN 18 Creatinine 1.0 Estimated GFR (MDRD) 54 L Glucose 102 H Lactic Acid 0.8 Calcium 9.2 Total Bilirubin 0.8 AST 27 ALT 17 Alkaline Phosphatase 105 Total Protein 7.2 Albumin 4.1 Globulin 3.1 Albumin/Globulin Ratio 1.3 Lipase 36 PD MEDICAL DECISION MAKING - ED course ED course: 75yF with pmh inguinal hernia s/p repair p/w symptoms concerning for hernia defect. no palpable hernia on exam and ct does not show appendicitis or active hernia. return precautions given. patient will follow up in surgery clinic. Departure - Departure Disposition: 01 Home, Self Care Clinical Impression: Inguinal hernia, Abdominal pain Condition: Good Instructions: ED Hernia Inguinal Follow-Up: Deann Massey MD [Provider Admit Priv/Credential] - Comments: You were seen in the emergency department for inguinal pain related to a hernia. Your CT showed a normal appendix, and normal blood flow. You should follow up with surgery clinic to see if your hernia repair needs to be repeated. Avoid lifting heavy objects. Return to the ed if your hernia comes out and you can't pop it back in or if you develop redness/discoloration or fever. return for new/worsening symptoms or other concerns.
[2020-12-14 06:45] VITALS: BP 122/68
--- NOTE | 2020-12-14 08:27 | CT Report ---
PROCEDURE: Abdomen/Pelvis W INDICATIONS: RLQ pain X several months CONTRAST: IV CONTRAST: Optiray 320 ml: 100 PO CONTRAST: *NO PO CONTRAST TECHNIQUE: After the administration of IV contrast, 5 mm thick sections acquired from the diaphragms to the symp hysis. 5 mm thick coronal and sagittal reformats were acquired. For radiation dose reduction, the f ollowing was used: automated exposure control, adjustment of mA and/or kV according to patient size. COMPARISON: 02/27/2018. FINDINGS: Image quality: Excellent. ABDOMEN: Lung bases: Bibasilar dependent atelectasis is seen. Heart size is normal. Solid organs: Liver and spleen are normal in size and enhancement. Gallbladder is within normal lewis its. There is very mild intrahepatic biliary ductal dilatation. Prominent common hepatic duct measure s 13 mm is again seen unchanged from prior study. Common bile that measures up to 6 mm in diameter an d is also unchanged from prior study. No calcified ductal stone or soft tissue density is seen. Pancr eatic duct is borderline distended at 3 mm in diameter. Pancreas enhances normally. No adrenal nodul es. Kidneys demonstrate normal size and enhancement, without hydronephrosis. Peritoneum and bowel: Bowel loops demonstrate normal wall thickness and caliber. No free fluid or a ir. Appendix is visualized and is within normal limits. Moderate amount of fecal stasis throughout t he colon is seen. Nodes and vessels: No retroperitoneal or mesenteric adenopathy by size criteria. Aorta and inferior vena cava are normal in size. Mild atherosclerotic calcifications are noted scattered along the abd ominal aorta. Miscellaneous: No ventral hernias. PELVIS: Genitourinary: Bladder wall thickness is normal. Miscellaneous: Postsurgical changes are noted from prior right inguinal hernia repair. No inguinal he rnia or lymphadenopathy is seen on the current study. Bones: No suspicious bony lesions. No vertebral body compression fractures. IMPRESSION: 1. Mild to moderate constipation. No bowel obstruction. No abnormal bowel thickening. No free fluid o r free air. Appendix is visualized and is within normal limits. 2. Prior right inguinal hernia repair. No inguinal hernia or lymphadenopathy is seen on the current s tudy. 3. Mild intrahepatic biliary ductal dilatation and stable dilatation of common hepatic duct unchanged from 2018 study. No gross choledocholithiasis is seen. No discrepancies from preliminary reading. Reviewed by: Jose Kaur MD on 12/14/2020 8:26 AM PST Approved by: Jose Kaur MD on 12/14/2020 8:26 AM PST Station ID: [id number]
== END 2020-12-14 06:45 | disposition home or self-care (01) ==
LOC: ED 03:25
DX: R10.31 Right lower quadrant pain (principal); Z98.890 Other specified postprocedural states; F17.200 Nicotine dependence, unspecified, uncomplicated
CPT/HCPCS: 36415; 74177; 80053; 83605; 83690; 85025; 96360; 99284; J7120; Q9967

== ENCOUNTER 2021-10-12 08:00 | Outpatient (CLI) | payer MEDICARE, OTHER ==
--- NOTE | 2021-10-12 09:08 | XRAY Report ---
PROCEDURE: Chest 2 View X-Ray INDICATIONS: PNEUMONIA TECHNIQUE: 2 view(s) of the chest. COMPARISON: December 17, 2019 FINDINGS: SUPPORT DEVICES: None. LUNGS/PLEURA: No focal consolidation, pleural effusion or space-occupying pneumothorax. MEDIASTINUM: The cardiomediastinal silhouette is within normal limits. BONES/SOFT TISSUES: No acute abnormality. IMPRESSION: 1.No acute cardiopulmonary abnormality. Reviewed by: Butch Gallo MD on 10/12/2021 9:07 AM [facility] Approved by: Butch Gallo MD on 10/12/2021 9:07 AM [facility] Station ID: [id number]
== END 2021-10-15 23:59 | disposition home or self-care (01) ==
LOC: DI.S 08:00
PROVIDERS: ATTEND Emergency Medicine
DX: J18.9 Pneumonia, unspecified organism (principal); Z20.822 Contact with and (suspected) exposure to COVID-19
CPT/HCPCS: 71046; 87070; 87205; U0004

== ENCOUNTER 2021-10-13 01:13 | Emergency (ER) | payer MEDICARE, OTHER ==
--- NOTE | 2021-10-13 01:32 | ED Physician Documentation ---
PD HPI URI - Stated complaint Stated Complaint: N/V/BACK CRAMPS - Chief complaint Chief Complaint: Abd Pain - History obtained from History obtained from: Patient - History of Present Illness Timing - onset: How many days ago (12) Timing duration: Days (12) Timing details: Gradual onset, Still present Associated symptoms: Fever (the first couple of days only.), Chills, Productive cough (brown initially then ring/yellow the past few days.), Chest pain (pains in chest and into thoracic back with coughing.). No: Hemoptysis Contributing factors: Unimmunized (lives at home by herself without contact with sick folk.). No: Sick contact, Travel, COPD / asthma Improves by: No: Medication (is not feeling better yet with Augmentin, and is having GI side effects of it.) Worsened by: Breathing Similar symptoms before: Has not had sx before Recently seen: Clinic (went to [facility] and Dx with pneumonia after chest xray and Rx with Augmentin. Patient has had 2 doses so far and started with nausea and abd cramping. Has pain thoracic area with coughing the past several days.) Review of Systems Constitutional: denies: Fever (12 days ago for couple days, but not since.), Chills Nose: reports: Congestion, Sinus pressure / pain. denies: Rhinorrhea / runny nose Throat: denies: Sore throat Cardiac: reports: Chest pain / pressure (hurting chest and back with coughing the past few days.). denies: Palpitations, Pedal edema, Calf pain Respiratory: reports: Dyspnea, Cough, Wheezing GI: reports: Abdominal Pain (the past half day after starting augmentin), Nausea. denies: Vomiting, Diarrhea Skin: denies: Rash, Lesions Neurologic: reports: Generalized weakness. 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 : None HEENT: None Psych: Depression, Anxiety Musculoskeletal: None Derm: Rosacea - Past Surgical History Past Surgical History: Yes Ortho: Other /FRUIT OR NUT FARMWORKER: Tubal ligation HEENT: Tonsil/Adenoidectomy - Present Medications Home Medications: Ambulatory Orders Medication Instructions Recorded Confirmed Citalopram [CeleXA] 10 mg ORAL DAILY 11/03/14 02/27/18 LORazepam [Ativan] 0.5 mg ORAL DAILY PRN 11/03/14 02/27/18 Levothyroxine [Synthroid] 50 mcg PO DAILY 11/03/14 02/27/18 Nitroglycerin 0.4 mg PO DAILY PRN 08/06/15 02/27/18 Hydrocodone/Acetaminophen 1 - 2 each PO Q6H PRN #14 tablet 02/02/17 02/27/18 [Hydrocodon-Acetaminophen 5-325] Meloxicam [Mobic] 7.5 mg PO BID PRN #20 tablet 02/02/17 02/27/18 Gabapentin [Neurontin] 100 mg PO TID #60 capsule 02/27/18 HYDROcod/ACETAM 5/325 [[place] 5/325] 1 - 2 ea PO Q6H PRN #15 tablet 02/27/18 Albuterol Sulf [Ventolin Hfa 2 puffs INH Q4HR PRN #1 inhaler 10/13/21 Inhaler] Benzonatate [Tessalon] 100 mg PO TID PRN #20 cap 10/13/21 Ondansetron Odt [Zofran] 4 mg TL Q6H PRN #15 tablet 10/13/21 cephALEXin [Keflex] 500 mg PO TID 5 Days #15 cap 10/13/21 dexAMETHasone [Decadron] 4 mg PO DAILY #5 tablet 10/13/21 - Allergies Allergies/Adverse Reactions: Allergies Allergy/AdvReac Type Severity Reaction Status Date / Time erythromycin base Allergy Mild Unknown Verified 10/13/21 01:26 [From E-Mycin] aspirin AdvReac Unknown Verified 10/13/21 01:26 epinephrine AdvReac Rash Verified 10/13/21 01:26 - Social History Does the pt smoke?: Yes Smoking Status: Current every day smoker Does the pt drink ETOH?: No Does the pt have substance abuse?: No - Immunizations Immunizations are current?: Yes - POLST Patient has POLST: No PD ED PE NORMAL - Vitals Vital signs reviewed: Yes - General General: Alert and oriented X 3, No acute distress, Well developed/nourished - HEENT HEENT: Moist mucous membranes, Pharynx benign - Neck Neck: Supple, no meningeal sign, No adenopathy - Cardiac Cardiac: RRR, No murmur - Respiratory Respiratory: Clear bilaterally - Abdomen Abdomen: Soft, Non tender - Derm Derm: Normal color, Warm and dry - Extremities Extremities: Normal ROM s pain, No edema, No calf tenderness / cord - Neuro Neuro: Alert and oriented X 3, No motor deficit, Normal speech Eye Opening: Spontaneous Motor: Obeys Commands Verbal: Oriented GCS Score: 15 Results - Vitals Vitals: Vital Signs - 24 hr 10/13/21 10/13/21 10/13/21 01:17 02:05 02:35 Temperature 37.0 C Heart Rate 61 51 L 63 Respiratory 18 18 Rate Blood Pressure 184/61 H 190/74 H O2 Saturation 99 95 10/13/21 02:53 Temperature Heart Rate 65 Respiratory 16 Rate Blood Pressure 174/70 H O2 Saturation 98 Oxygen O2 Source Room air PD MEDICAL DECISION MAKING - ED course Complexity details: reviewed results (chest xray from earlier today at Walk In - showing no infiltrates. ), considered differential (pain in thoracic area with coughing. Had CXR in [facility] In earlier today that was clear without pneumonia. States nausea/abd cramps after Augmentin. Had negative COVID test few days ago. ), d/w patient Departure - Departure Disposition: 01 Home, Self Care Clinical Impression: Nausea, Muscle strain of upper back, Medication side effect Acute bronchitis Qualifiers: Bronchitis organism: unspecified organism Qualified Code(s): J20.9 - Acute bronchitis, unspecified Condition: Stable Record reviewed to determine appropriate education?: Yes Prescriptions: Albuterol Sulf [Ventolin Hfa Inhaler] 2 puffs INH Q4HR PRN #1 inhaler PRN Reason: Shortness Of Air/Wheezing dexAMETHasone [Decadron] 4 mg PO DAILY #5 tablet cephALEXin [Keflex] 500 mg PO TID 5 Days #15 cap Benzonatate [Tessalon] 100 mg PO TID PRN #20 cap PRN Reason: Cough Ondansetron Odt [Zofran] 4 mg TL Q6H PRN #15 tablet PRN Reason: Nausea / Vomiting Comments: Nausea and stomach cramps are likely a side effect of the Augmentin you started yesterday. These are common side effects of it. You could stop the Augmentin. We can switch to a different antibiotic and see if it is easier on the stomach. We can try cephalexin. For your cough and back pain and trouble breathing, we can try medications to improve the airflow and reduce inflammation of the bronchials and decrease the coughing. This would be a combination of albuterol inhaler 2 puffs 3-4 times a day for the next several days to week along with Decadron steroid anti- inflammatory for several days and Tessalon (benzonatate) for cough suppression. Add ondansetron if needed for nausea and Tylenol every 4-6 hours if needed for pains. I would anticipate improvement over the next several days. Recheck if not improving or return if worse. Your chest x-ray taken at the urgent care does not show any pneumonia. Your symptoms sound likely bronchitis so similar idea of treatment. Your oxygenation level is good. Your BP is slightly elevated here but probably increased by being ill and symptoms. See how it does when you are feeling better. I transmitted your scripts to [facility] in [place]. Call them to see if open tomorrow/Today ([facility] believe [facility] supposed [facility], even though is holiday); otherwise would need to get the medications on Sunday. Discharge Date/Time: 10/13/21 03:03
[2021-10-13] MEDS ORDERED: ACETAMINOPHEN 325 MG TABLET PO STA (01:58)
[2021-10-13] MEDS ORDERED: ALBUTEROL 1 PUFF INH STA (01:58)
[2021-10-13] MEDS ORDERED: CHERRY SYRUP 10 ML UDC PO ONE (01:58)
[2021-10-13] MEDS ORDERED: DEXAMETHASONE 10 MG/ML VIAL PO STA (01:58)
[2021-10-13] MEDS ORDERED: BENZONATATE 100 MG CAPSULE PO STA (01:58)
[2021-10-13 02:54] VITALS: BP 174/70
== END 2021-10-13 03:03 | disposition home or self-care (01) ==
LOC: ED 01:13
DX: R11.0 Nausea (principal); R10.9 Unspecified abdominal pain; S29.012A Strain of muscle and tendon of back wall of thorax, initial encounter; T36.0X5A Adverse effect of penicillins, initial encounter; T36.1X5A Adverse effect of cephalosporins and other beta-lactam antibiotics, initial encounter; J20.9 Acute bronchitis, unspecified; R03.0 Elevated blood-pressure reading, without diagnosis of hypertension; F17.200 Nicotine dependence, unspecified, uncomplicated
CPT/HCPCS: 94640; 94664; 99283; 99284; A9270

== ENCOUNTER 2021-10-15 08:00 | Outpatient (CLI) | payer MEDICARE, OTHER ==
--- NOTE | 2021-10-15 18:24 | XRAY Report ---
PROCEDURE: Thoracic Spine 3 View INDICATIONS: LOW BACK PAIN TECHNIQUE: 3 views of the thoracic spine were acquired. COMPARISON: Correlation is made with the accompanying lumbar plain films, 10/15/2021. Correlation is also made with the recent prior chest CT, 10/12/2021. FINDINGS: Bones: No acute fractures or dislocations. Minimal anterior cerebral arteries are seen at the approx imate T7, T8, and T11 levels. No suspicious bony lesions. 12 pairs of ribs are noted, and appear int act where visualized. Soft tissues: No paravertebral stripe thickening. Calcification is seen of the aortic arch. IMPRESSION: Mild lower thoracic spine chronic appearing anterior wedge deformities. Reviewed by: Alberto Garcia MD on 10/15/2021 5:22 PM [facility] Approved by: Alberto Garcia MD on 10/15/2021 5:22 PM [place] Station ID: [id number]
--- NOTE | 2021-10-15 18:27 | XRAY Report ---
PROCEDURE: Lumbar Spine 2 View INDICATIONS: BACK PAIN,LOW TECHNIQUE: 2 views of the lumbar spine were acquired. COMPARISON: 11/06/2019. Correlation is also made with prior lumbar spine CT, 02/27/2018. Correlation is made with the accompanying thoracic spine pain films as well as the recent abdomen and pelvis CT, 12/14/2020. FINDINGS: Bones: 5 [id number] vertebrae are present. Minimal S-shaped scoliotic curvature is seen. No si gnificant AP alignment abnormality can be seen. No suspicious bony lesions. There is a remote compression from a seen involving the inferior endplate of L4, with approximately 1 0% loss of height centrally. Mild chronic appearing anterior wedge deformities can be seen involving the lower thoracic spine. The disc heights are relatively well-preserved. Facet arthropathy is seen, which is most prominent in feriorly. Soft tissues: Overlying bowel gas pattern is normal. No suspicious soft tissue calcifications. Ath erosclerotic calcification is seen. IMPRESSION: Remote lower thoracic spine anterior wedge deformities. Remote L4 central compression deformity. Degenerative changes are seen, with facet arthropathy. Reviewed by: Alberto Garcia MD on 10/15/2021 5:26 PM [facility] Approved by: Alberto Garcia MD on 10/15/2021 5:26 PM [facility] Station ID: [id number]
== END 2021-10-15 23:59 | disposition home or self-care (01) ==
LOC: DI.S 08:00
PROVIDERS: ATTEND Emergency Medicine
DX: M47.816 Spondylosis without myelopathy or radiculopathy, lumbar region (principal); M43.9 Deforming dorsopathy, unspecified

== ENCOUNTER 2022-05-18 08:41 | Outpatient (CLI) | payer MEDICARE, OTHER ==
[2022-05-18 08:54] LABS: EOSINOPHILS # (AUTO) 0.1 10^3/uL (0.0-0.7); EOSINOPHILS % (AUTO) 1.7 %; HCT - HEMATOCRIT 34.1 % (37.0-47.0); HGB - HEMOGLOBIN 11.5 g/dL (12.0-16.0); LYMPHOCYTES % (AUTO) 33.9 %; MEAN CORPUSCULAR HEMOGLOBIN 32.9 pg (27.0-31.0); MEAN CORPUSCULAR HGB CONC 33.7 g/dL (32.0-36.0); MEAN CORPUSCULAR VOLUME 97.4 fL (81.0-99.0); MEAN PLATELET VOLUME 9.6 fL (7.9-10.8); MONOCYTES # (AUTO) 0.4 10^3/uL (0.0-1.0); MONOCYTES % (AUTO) 12.8 %; NEUTROPHILS # (AUTO) 1.5 10^3/uL (1.5-6.6); NEUTROPHILS % (AUTO) 50.3 %; PLT - PLATELET COUNT 220 10^3/uL (130-450); RED CELL DISTRIBUTION WIDTH 14.6 % (12.0-15.0)
[2022-05-18 09:12] LABS: ALBUMIN/GLOBULIN RATIO 1.4 (1.0-2.2); ALKALINE PHOSPHATASE 102 IU/L (42-121); ALT ALANINE AMINOTRANSFERASE 15 IU/L (10-60); AST ASPARTATE AMINOTRANSFERASE 23 IU/L (10-42); BILIRUBIN,TOTAL 0.6 mg/dL (0.2-1.0); BUN - BLOOD UREA NITROGEN 14 mg/dL (6-20); CALCIUM 9.1 mg/dL (8.5-10.3); CARBON DIOXIDE - CO2 30 mmol/L (21-32); CHLORIDE 99 mmol/L (101-111); CHOL/HDL RATIO 2.4 (<4.4); CHOLESTEROL 265 mg/dL; CREATININE 0.8 mg/dL (0.4-1.0); GFR - MDRD 70 (>89); GLUCOSE 98 mg/dL (70-100); HDL CHOLESTEROL 110 mg/dL; LDL CHOLESTEROL,CALCULATED 146 mg/dL; LDL/HDL RATIO 1.3 (<4.4); POTASSIUM 4.3 mmol/L (3.5-5.0); SODIUM 138 mmol/L (135-145); TOTAL PROTEIN 6.9 g/dL (6.7-8.2); TRIGLYCERIDES 43 mg/dL; VLDL CHOLESTEROL 9 mg/dL
== END 2022-05-18 08:42 | disposition home or self-care (01) ==
LOC: LAB 08:41
PROVIDERS: ATTEND Internal Medicine
DX: I10 Essential (primary) hypertension (principal); R60.0 Localized edema; Z13.1 Encounter for screening for diabetes mellitus; D46.20 Refractory anemia with excess of blasts, unspecified
CPT/HCPCS: 36415; 80053; 80061; 83036; 83721; 85025

== ENCOUNTER 2022-07-16 07:59 | Outpatient (CLI) | payer MEDICARE, OTHER | END 2022-07-16 23:59 | disposition short-term general hospital (02) | LOC: EMS 07:59 | DX: R07.9 Chest pain, unspecified (principal); R11.0 Nausea; F41.9 Anxiety disorder, unspecified | CPT/HCPCS: A0425; A0427 ==

== ENCOUNTER 2023-08-27 11:40 | Outpatient (CLI) | payer MEDICARE, OTHER ==
[2023-08-27 14:54] LABS: BASOPHILS % (AUTO) 0.8 %; EOSINOPHILS # (AUTO) 0.1 10^3/uL (0.0-0.7); EOSINOPHILS % (AUTO) 1.9 %; HCT - HEMATOCRIT 30.3 % (37.0-47.0); LYMPHOCYTES # (AUTO) 1.4 10^3/uL (1.5-3.5); LYMPHOCYTES % (AUTO) 38.2 %; MEAN CORPUSCULAR HEMOGLOBIN 32.8 pg (27.0-31.0); MEAN CORPUSCULAR VOLUME 99.3 fL (81.0-99.0); MEAN PLATELET VOLUME 10.5 fL (7.9-10.8); MONOCYTES # (AUTO) 0.4 10^3/uL (0.0-1.0); MONOCYTES % (AUTO) 11.7 %; NEUTROPHILS # (AUTO) 1.8 10^3/uL (1.5-6.6); NEUTROPHILS % (AUTO) 47.1 %; PLT - PLATELET COUNT 208 10^3/uL (130-450); RED BLOOD COUNT 3.05 10^6/uL (4.20-5.40); RED CELL DISTRIBUTION WIDTH 15.1 % (12.0-15.0); WHITE BLOOD COUNT 3.8 x10^3/uL (4.8-10.8)
== END 2023-08-27 11:41 | disposition home or self-care (01) ==
LOC: LAB.S 11:40
PROVIDERS: ATTEND Internal Medicine
DX: C94.6 Myelodysplastic disease, not elsewhere classified (principal)
CPT/HCPCS: 36415; 85025

== ENCOUNTER 2024-05-16 14:29 | Outpatient (CLI) | payer MEDICARE, OTHER ==
[2024-05-16 14:53] LABS: VBG PH 7.384 (7.31-7.41)
[2024-05-16 14:54] LABS: CALCIUM, IONIZED 1.2 mmol/L (1.15-1.33)
[2024-05-16 15:40] LABS: MAGNESIUM 1.8 mg/dL (1.7-2.3)
[2024-05-16 16:18] LABS: THYROID STIMULATING HORMONE 2.33 uIU/mL (0.34-5.60)
== END 2024-05-16 14:30 | disposition home or self-care (01) ==
LOC: LAB 14:29
PROVIDERS: ATTEND Internal Medicine
DX: Z51.81 Encounter for therapeutic drug level monitoring (principal); E03.9 Hypothyroidism, unspecified; C94.6 Myelodysplastic disease, not elsewhere classified; S22.080A Wedge compression fracture of T11-T12 vertebra, initial encounter for closed fracture; Z79.899 Other long term (current) drug therapy
CPT/HCPCS: 36415; 82306; 82330; 83735; 83970; 84207; 84443

== ENCOUNTER 2024-06-10 15:04 | Outpatient (CLI) | payer MEDICARE, OTHER ==
--- NOTE | 2024-06-10 22:12 | MRI Report ---
PROCEDURE: Thoracic Spine WO INDICATIONS: THORACIC COMPRESSION FX TECHNIQUE: Noncontrast sagittal T1 spine echo and T2 fast spin echo, sagittal STIR, axial T1 and T2 fast spin ec ho through the thoracic spine. COMPARISON: None. FINDINGS: Image quality: Excellent. Alignment and Curvature: There is normal bony alignment. Bone Marrow: Marrow is of normal overall signal. 44% compression deformity at T12 with mild increase d T2 signal. Superior endplate deformity is present at L1 appearing chronic. T8 superior endplate def ormity also appears chronic. 58% compression deformity at the superior endplate of T7 with minimal in creased T2 signal. Spinal Cord: Visualized spinal cord is normal in size and signal. Paraspinous Soft Tissues: No paravertebral masses. Miscellaneous: On axial images, central canal and foramina appear widely patent at all scanned level s. Scattered trace disc bulges are present most notable at T9-10, T10-11. IMPRESSION: Multilevel compression deformities with T12 appearing most prominent at acute/subacute. An appearance of late subacute superior endplate deformity at T7 is also present. Chronic deformities at L1 and T8 are noted. Reviewed by: Lilibeth Bennett MD on 06/10/2024 10:11 PM PDT Approved by: Lilibeth Bennett MD on 06/10/2024 10:11 PM PDT Station ID: [id number]
== END 2024-06-10 15:05 | disposition home or self-care (01) ==
LOC: DI 15:04
PROVIDERS: ATTEND Physician Assistant
DX: M43.8X4 Other specified deforming dorsopathies, thoracic region (principal); M43.8X6 Other specified deforming dorsopathies, lumbar region

== ENCOUNTER 2024-07-22 15:27 | Outpatient (CLI) | payer MEDICARE, OTHER ==
[2024-07-22 15:43] LABS: BASOPHILS % (AUTO) 0.5 %; CALCIUM, IONIZED 1.14 mmol/L (1.15-1.33); EOSINOPHILS # (AUTO) 0.1 10^3/uL (0.0-0.7); EOSINOPHILS % (AUTO) 1.4 %; HCT - HEMATOCRIT 30.8 % (37.0-47.0); HGB - HEMOGLOBIN 10.2 g/dL (12.0-16.0); LYMPHOCYTES # (AUTO) 1.6 10^3/uL (1.5-3.5); LYMPHOCYTES % (AUTO) 36.8 %; MEAN CORPUSCULAR HEMOGLOBIN 32.4 pg (27.0-31.0); MEAN CORPUSCULAR HGB CONC 33.1 g/dL (32.0-36.0); MEAN CORPUSCULAR VOLUME 97.8 fL (81.0-99.0); MEAN PLATELET VOLUME 10.1 fL (7.9-10.8); MONOCYTES # (AUTO) 0.4 10^3/uL (0.0-1.0); NEUTROPHILS # (AUTO) 2.2 10^3/uL (1.5-6.6); NEUTROPHILS % (AUTO) 51.1 %; PLT - PLATELET COUNT 204 10^3/uL (130-450); RED BLOOD COUNT 3.15 10^6/uL (4.20-5.40); RED CELL DISTRIBUTION WIDTH 15.3 % (12.0-15.0); VBG PH 7.431 (7.31-7.41); WHITE BLOOD COUNT 4.3 x10^3/uL (4.8-10.8)
[2024-07-22 15:51] LABS: MAGNESIUM 1.7 mg/dL (1.7-2.3)
[2024-07-22 16:12] LABS: THYROID STIMULATING HORMONE 1.37 uIU/mL (0.34-5.60)
--- NOTE | 2024-07-23 13:15 | XRAY Report ---
PROCEDURE: Sinus 3+V INDICATIONS: SEASONAL ALLERGIES TECHNIQUE: 3 views of the sinuses were acquired. COMPARISON: CT sinus 06/05/2022 FINDINGS: Sinuses: The visualized sinuses demonstrate no air-fluid levels or mucosal thickening. The visualiz ed mastoids also appear clear. Bones: No suspicious bony lesions. Nasal septum is midline. IMPRESSION: No air-fluid levels to suggest acute sinusitis. Reviewed by: Lilibeth Bennett MD on 07/23/2024 1:14 PM PDT Approved by: Lilibeth Bennett MD on 07/23/2024 1:14 PM PDT Station ID: [id number]
== END 2024-07-22 15:28 | disposition home or self-care (01) ==
LOC: DI 15:27
PROVIDERS: ATTEND Internal Medicine
DX: J30.2 Other seasonal allergic rhinitis (principal); M81.0 Age-related osteoporosis without current pathological fracture; R25.2 Cramp and spasm; F06.4 Anxiety disorder due to known physiological condition; E03.9 Hypothyroidism, unspecified; C94.6 Myelodysplastic disease, not elsewhere classified
CPT/HCPCS: 36415; 82306; 82330; 82607; 83735; 83970; 84439; 84443; 84481; 85025